=== PATIENT | male | born 1980 | race Caucasian/White ===

== ENCOUNTER 2016-10-29 12:03 | Emergency (ER) | payer OTHER ==
[~2016-10-29] VITALS: Ht 188 cm; Wt 127.0 kg
[2016-10-29 12:10] VITALS: BP 123/82
[2016-10-29] MEDS ORDERED: BACLOFEN10 MG PO (16:04)
[2016-10-29] MEDS ORDERED: PERCOCET 5/31 TABLET PO (16:04)
== END 2016-10-29 16:24 | disposition home or self-care (01) ==
LOC: EME 12:03
DX: M54.12 Radiculopathy, cervical region (principal)
CPT/HCPCS: 73030; 99281; 99283